=== PATIENT | female | born 2000 | race Caucasian/White ===

== ENCOUNTER → 2019-05-29 17:44 | Outpatient (BNVA) | payer MEDICAID, SELFPAY | PROVIDERS: Family Provider Counselor Professional; PCP Emergency Medicine; Visit Provider Family Medicine | DX: J45.20 Mild intermittent asthma, uncomplicated (principal); J30.2 Other seasonal allergic rhinitis; F31.9 Bipolar disorder, unspecified; I10 Essential (primary) hypertension; R23.2 Flushing; Z30.9 Encounter for contraceptive management, unspecified | CPT/HCPCS: 81003; 87491; 87591 ==

== ENCOUNTER → 2019-06-28 11:15 | Outpatient (BNVA) | payer MEDICAID, SELFPAY | PROVIDERS: Family Provider Counselor Professional; PCP Emergency Medicine; Visit Provider Family Medicine | DX: F31.9 Bipolar disorder, unspecified (principal); R30.0 Dysuria | CPT/HCPCS: 87491; 87591 ==

== ENCOUNTER → 2019-07-23 15:40 | Outpatient (BNVA) | payer MEDICAID, SELFPAY | PROVIDERS: Family Provider Counselor Professional; PCP Emergency Medicine; Visit Provider Family Medicine | DX: F31.9 Bipolar disorder, unspecified (principal); R30.0 Dysuria; R39.89 Other symptoms and signs involving the genitourinary system; Z20.2 Contact with and (suspected) exposure to infections with a predominantly sexual mode of transmission; Z72.51 High risk heterosexual behavior; A64 Unspecified sexually transmitted disease; N89.8 Other specified noninflammatory disorders of vagina | CPT/HCPCS: 80053; 81000; 81025; 87077; 87086; 87186; 87491; 87591; 87661 ==